=== PATIENT | male | born 1960 | race Caucasian/White ===

== ENCOUNTER 2018-07-30 11:47 | Emergency (ER) | payer MEDICAID, OTHER ==
[~2018-07-30] VITALS: Ht 162.6 cm; Wt 70.3 kg
[2018-07-30] MEDS ORDERED: cefTRIAXone SOD 1,000 MG VL IM ONE (12:30)
[2018-07-30 14:26] LABS: Basophils # (auto) 0.1 uL; Basophils % (auto) 0.8 % (0.0-2.0); Eosinophils # (auto) 0 uL; Eosinophils % (auto) 0.5 % (0.0-7.0); Hematocrit 48.5 % (41.0-53.0); Lymphocytes % (auto) 11.3 % (10.0-50.0); Mean Corpuscular Hemoglobin 31.2 pg (28.0-32.0); Mean Corpuscular Volume 89.2 fL (80.0-100.0); Monocytes # (auto) 0.7 uL; Monocytes % (auto) 7.8 % (0.0-12.0); Neutrophils # (auto) 7.1 uL; Neutrophils % (auto) 79.6 % (37.0-80.0); Nucleated Red Blood Cells % 0.5 %; Platelet Count (auto) 233 10^3/uL (140-450); Red Blood Cells 5.44 10^6/uL (4.5-5.90); Red Cell Distribution Width 12.8 % (11.8-14.3); White Blood Cell 8.9 10^3/uL (4.4-10.8)
[2018-07-30 14:39] LABS: Albumin 4.2 g/dL (3.4-5.0); Calcium 9.2 mg/dL (8.5-10.1); Potassium 4.2 mmol/L (3.5-5.1)
[2018-07-30 14:43] LABS: BUN/Creatinine Ratio 11.6; Bilirubin, Total 0.6 mg/dL (0.2-1.0); Total Protein 7.7 g/dL (6.4-8.2)
[2018-07-30 15:05] VITALS: BP 135/72
[2018-07-30] MEDS ORDERED: LIDOCAINE 2% (LOCAL ANESTH.) PF 5ml SDV ONE (15:14)
== END 2018-07-30 15:24 | disposition home or self-care (01) ==
LOC: ER 11:54
DX: L03.211 Cellulitis of face (principal)
CPT/HCPCS: 36415; 70486; 80053; 85025; 96372; 99284; J0696; J2001

== ENCOUNTER 2018-08-12 13:01 | Emergency (ER) | payer MEDICAID ==
[~2018-08-12] VITALS: Ht 165.1 cm; Wt 72.6 kg
[2018-08-12 13:31] VITALS: BP 146/74
[2018-08-12] MEDS ORDERED: LIDOCAINE 1% HCL (LOCAL ANESTH.) INJ 20ML MDV ONE (15:22)
[2018-08-12] MEDS ORDERED: cefTRIAXone SOD 1,000 MG VL IM ONE (15:30)
[2018-08-12] MEDS ORDERED: BACITRACIN TOP OINT 1 UD PKG TOP ONE (15:30)
[2018-08-12] MEDS ORDERED: LIDOCAINE 1% (LOCAL ANESTH.) PF 5ml SDV ID ONE (15:30)
== END 2018-08-12 15:53 | disposition home or self-care (01) ==
LOC: ER 13:03
DX: S01.412A Laceration without foreign body of left cheek and temporomandibular area, initial encounter (principal); R22.0 Localized swelling, mass and lump, head; W45.8XXA Other foreign body or object entering through skin, initial encounter; Y93.89 Activity, other specified; Y92.89 Other specified places as the place of occurrence of the external cause; Y99.8 Other external cause status
CPT/HCPCS: 12011; 96372; 99283; J0696; J2001

== ENCOUNTER 2018-08-14 11:53 | Emergency (ER) | payer MEDICAID ==
[~2018-08-14] VITALS: Ht 162.6 cm; Wt 72.6 kg
[2018-08-14 12:01] VITALS: BP 149/90
== END 2018-08-14 12:55 | disposition left against medical advice (07) ==
LOC: ER 11:53
DX: Z48.01 Encounter for change or removal of surgical wound dressing (principal); Z53.21 Procedure and treatment not carried out due to patient leaving prior to being seen by health care provider